=== PATIENT | male | born 1995 | race Caucasian/White ===

== ENCOUNTER 2021-06-16 22:20 | Emergency (ER) | payer MEDICAID, OTHER ==
[~2021-06-16] VITALS: Ht 177.8 cm; Wt 113.4 kg
--- NOTE | 2021-06-16 22:35 | NUR ---
PATIENT [facility] [employer] DEPT. PATIENT EXAMINED BY DR. PEREZ. PATIENT MEDICALLY CLEARED AND RELEASED IN CUSTODY IN STABLE CONDITION. ORIGINAL PRE-BOOK FORM GIVEN TO OFFICER MARIELY.
== END 2021-06-16 22:35 ==
LOC: MED 22:20
DX: Z02.89 Encounter for other administrative examinations (principal)
CPT/HCPCS: 99283